=== PATIENT | male | born 1950 | race Caucasian/White ===

== ENCOUNTER → 2016-12-01 | Outpatient (CLI) | payer BC, OTHER ==
[~2016-12-01] VITALS: Ht 30.5 cm; Wt 0.5 kg
[~2016-12-01] MED LIST: APIX5TAB OR; ATOR1TAB PO; CYANOCOBALAMIN (B-12) 1000 MCG/1 ML VIAL IM ONE; CYANOCOBALAMIN (B-12) 1000 MCG/1 ML VIAL ONE; DIGO0.2570 PO; DOCU100T15 PO; FAMO40TA49 PO; FURO40TA PO; LEVO25TA6 PO; LISI-646 PO; METO-159 PO; OMEP20CA5 PO; POTA10TA51 PO; SPIR25TA89 PO; TEMA30CA PO; VENL37.56 PO
[2016-12-01 12:25] VITALS: BP 129/82
[2016-12-01 16:55] LABS: Potassium 4.1 mmol/L (3.5-5.1)
[2016-12-01 16:58] LABS: BUN/Creatinine Ratio 12.7; Basophils # (auto) 0 uL; Basophils % (auto) 0.4 % (0.0-2.0); Calcium 8.9 mg/dL (8.5-10.1); Eosinophils # (auto) 0.1 uL; Eosinophils % (auto) 0.9 % (0.0-7.0); Hemoglobin 15.5 g/dL (13.5-17.5); Lymphocytes # (auto) 1.5 uL; Lymphocytes % (auto) 22.5 % (10.0-50.0); Magnesium 2.2 mg/dL (1.6-2.6); Mean Corpuscular Hemoglobin 30.6 pg (28.0-32.0); Mean Corpuscular Hgb Conc. 32.3 g/dL (32.0-36.0); Mean Platelet Volume 10.6 fL (7.4-10.4); Monocytes # (auto) 0.4 uL; Monocytes % (auto) 5.6 % (0.0-12.0); Neutrophils # (auto) 4.8 uL; Neutrophils % (auto) 70.6 % (37.0-80.0); Platelet Count (auto) 193 10^3/uL (140-450); Red Cell Distribution Width 13.3 % (11.6-16.0); White Blood Cell 6.7 10^3/uL (4.4-10.8)
== END | disposition home or self-care (01) ==
LOC: CHF HDHVI 11:18
PROVIDERS: ATTEND Internal Medicine Cardiovascular Disease
DX: I10 Essential (primary) hypertension (principal); T46.0X6D Underdosing of cardiac-stimulant glycosides and drugs of similar action, subsequent encounter; E03.9 Hypothyroidism, unspecified; D64.9 Anemia, unspecified; E83.40 Disorders of magnesium metabolism, unspecified
CPT/HCPCS: 36415; 80048; 80162; 83735; 84443; 85025; 85049; 93701; G0463

== ENCOUNTER → 2016-12-11 | Outpatient (CLI) | payer OTHER ==
[~2016-12-11] MED LIST changes: -CYANOCOBALAMIN (B-12) 1000 MCG/1 ML VIAL IM ONE; -CYANOCOBALAMIN (B-12) 1000 MCG/1 ML VIAL ONE
[2016-12-11 11:16] LABS: Urine RBC None Seen /hpf (0 - 3)
[2016-12-11 11:41] LABS: Urine Bilirubin Negative (Negative); Urine Blood Negative /uL (Negative); Urine Color Yellow (Yellow); Urine Glucose Normal (Normal); Urine Hyaline Cast FEW /lpf (0 - 2); Urine Ketone Negative (Negative); Urine Nitrite Negative (Negative); Urine Urobilinogen Normal (Negative)
[2016-12-11 11:56] LABS: Albumin 3.8 g/dL (3.4-5.0); BUN/Creatinine Ratio 15.8; Bilirubin, Total 1.2 mg/dL (0.2-1.0); Calcium 9.1 mg/dL (8.5-10.1); Potassium 4.6 mmol/L (3.5-5.1); Total Protein 7.5 g/dL (6.4-8.2)
== END | disposition home or self-care (01) ==
LOC: LAB 10:34
PROVIDERS: ATTEND Internal Medicine
DX: Z00.00 Encounter for general adult medical examination without abnormal findings (principal)
CPT/HCPCS: 36415; 80053; 80061; 80162; 81001; 83036; 84443

== ENCOUNTER → 2017-03-12 | Outpatient (CLI) | payer OTHER | END | disposition home or self-care (01) | LOC: Rad HDHVI 10:17 | PROVIDERS: ATTEND Internal Medicine Cardiovascular Disease | DX: T46.0X6D Underdosing of cardiac-stimulant glycosides and drugs of similar action, subsequent encounter (principal) | CPT/HCPCS: 36415; 70220; 80162 ==

== ENCOUNTER 2017-04-15 10:41 | Emergency (ER) | payer BC, OTHER, MEDICAID ==
[~2017-04-15] VITALS: Ht 177.8 cm; Wt 86.2 kg
[~2017-04-15 10:41] MED LIST changes: -OMEP20CA5 PO; +OMEP20CA74 PO
[2017-04-15 12:32] LABS: Basophils # (auto) 0 uL; Basophils % (auto) 0.2 % (0.0-2.0); Eosinophils # (auto) 0.1 uL; Eosinophils % (auto) 1.2 % (0.0-7.0); Hematocrit 44.7 % (41.0-53.0); Hemoglobin 15.1 g/dL (13.5-17.5); Lymphocytes # (auto) 1.9 uL; Lymphocytes % (auto) 32.5 % (10.0-50.0); Mean Corpuscular Hemoglobin 31.7 pg (28.0-32.0); Mean Corpuscular Hgb Conc. 33.8 g/dL (32.0-36.0); Mean Corpuscular Volume 93.9 fL (80.0-100.0); Mean Platelet Volume 9.6 fL (7.4-10.4); Monocytes # (auto) 0.5 uL; Monocytes % (auto) 8.4 % (0.0-12.0); Neutrophils # (auto) 3.4 uL; Neutrophils % (auto) 57.7 % (37.0-80.0); Platelet Count (auto) 210 10^3/uL (140-450); White Blood Cell 5.8 10^3/uL (4.4-10.8)
[2017-04-15 12:53] LABS: Magnesium 2.1 mg/dL (1.6-2.6)
[2017-04-15 12:59] LABS: Albumin 3.4 g/dL (3.4-5.0); Alkaline Phosphatase 71 U/L (45-117); Anion Gap 6 (5-15); Aspartate Aminotransferase 22 U/L (15-37); BUN/Creatinine Ratio 15.3; Bilirubin, Total 0.9 mg/dL (0.2-1.0); Blood Urea Nitrogen 18 mg/dL (7-18); Calcium 8.7 mg/dL (8.5-10.1); Carbon Dioxide 29 mmol/L (21-32); Chloride 106 mmol/L (98-107); GFR African American 80 mL/min; GFR Non-African American 66 mL/min; Glucose 109 mg/dL (74-106); Potassium 4.6 mmol/L (3.5-5.1); Sodium 141 mmol/L (136-145)
[2017-04-15 17:58] LABS: Urine Bilirubin Negative (Negative); Urine Blood Negative /uL (Negative); Urine Color Yellow (Yellow); Urine Glucose Normal (Normal); Urine Ketone TRACE (Negative); Urine Nitrite Negative (Negative); Urine RBC <1 /hpf (0 - 3); Urine Squamous Epithelial Cell FEW /hpf (<5); Urine pH 6.5 (5.0-8.0)
[2017-04-15 21:08] VITALS: BP 140/81
== END 2017-04-15 21:08 | disposition home or self-care (01) ==
LOC: ER 10:41
DX: F29 Unspecified psychosis not due to a substance or known physiological condition (principal); I11.0 Hypertensive heart disease with heart failure; I50.9 Heart failure, unspecified; E78.5 Hyperlipidemia, unspecified; K21.9 Gastro-esophageal reflux disease without esophagitis; E07.89 Other specified disorders of thyroid; G51.0 Bell's palsy; Z79.899 Other long term (current) drug therapy
CPT/HCPCS: 36415; 70450; 71020; 80053; 80162; 80307; 80320; 81001; 83735; 84484; 85025; 93005

== ENCOUNTER → 2017-04-20 | Outpatient (CLI) | payer BC, OTHER, MEDICAID | END | disposition home or self-care (01) | LOC: CHF HDHVI 11:57 | PROVIDERS: ATTEND Internal Medicine Cardiovascular Disease | DX: I50.9 Heart failure, unspecified (principal); F32.9 Major depressive disorder, single episode, unspecified; E07.9 Disorder of thyroid, unspecified | CPT/HCPCS: G0463 ==

== ENCOUNTER → 2017-06-04 | Outpatient (CLI) | payer OTHER, MEDICAID ==
[~2017-06-04] MED LIST changes: +CYANOCOBALAMIN (B-12) 1000 MCG/1 ML VIAL IM ONE; +CYANOCOBALAMIN (B-12) 1000 MCG/1 ML VIAL ONE; +TESTOSTERONE CYPIONATE 200 MG/ML 1ML VIAL IM ONE
[2017-06-04 12:05] VITALS: BP 103/64
[2017-06-04 13:45] VITALS: BP 93/57
[2017-06-04 16:30] LABS: B-Type Natriuretic Peptide 154.2 pg/mL (0-100)
[2017-06-04 16:32] LABS: Temperature: 22.9 C (20.0-25.0)
== END | disposition home or self-care (01) ==
LOC: CHF HDHVI 12:10
PROVIDERS: ATTEND Internal Medicine Cardiovascular Disease
DX: I50.9 Heart failure, unspecified (principal); D51.9 Vitamin B12 deficiency anemia, unspecified; E55.9 Vitamin D deficiency, unspecified; R53.81 Other malaise
CPT/HCPCS: 36415; 82306; 82607; 83880; 84403; 94620; G0463; J1071; J3420

== ENCOUNTER → 2017-06-10 | Outpatient (CLI) | payer OTHER, MEDICAID ==
[~2017-06-10] MED LIST changes: -CYANOCOBALAMIN (B-12) 1000 MCG/1 ML VIAL IM ONE; -CYANOCOBALAMIN (B-12) 1000 MCG/1 ML VIAL ONE; -TESTOSTERONE CYPIONATE 200 MG/ML 1ML VIAL IM ONE
[2017-06-10 14:15] VITALS: BP 92/58
[2017-06-10 16:07] VITALS: BP 92/58
[2017-06-10 16:30] VITALS: BP 110/75
== END | disposition home or self-care (01) ==
LOC: CHF HDHVI 14:48
PROVIDERS: ATTEND Internal Medicine Cardiovascular Disease
DX: I10 Essential (primary) hypertension (principal); E87.70 Fluid overload, unspecified; R45.1 Restlessness and agitation
CPT/HCPCS: G0463

== ENCOUNTER → 2017-06-15 | Outpatient (CLI) | payer OTHER, MEDICAID ==
[2017-06-15 15:50] VITALS: BP 109/71
[2017-06-15 17:23] LABS: Cholesterol 95 mg/dL (< 200); HDL Cholesterol 26 mg/dL (40-59); LDL Cholesterol 53 mg/dL (< 100); Triglycerides 168 mg/dL (< 150)
== END | disposition home or self-care (01) ==
LOC: CHF HDHVI 15:18
PROVIDERS: ATTEND Internal Medicine Cardiovascular Disease
DX: E78.00 Pure hypercholesterolemia, unspecified (principal)
CPT/HCPCS: 36415; 80061; G0463

== ENCOUNTER → 2017-07-02 | Outpatient (CLI) | payer OTHER, MEDICAID ==
[~2017-07-02] MED LIST changes: +CYANOCOBALAMIN (B-12) 1000 MCG/1 ML VIAL IM ONE; +CYANOCOBALAMIN (B-12) 1000 MCG/1 ML VIAL ONE; +TESTOSTERONE CYPIONATE 200 MG/ML 1ML VIAL IM ONE
[2017-07-02 13:45] VITALS: BP 99/59
[2017-07-02 16:29] LABS: Basophils # (auto) 0 uL; Basophils % (auto) 0.6 % (0.0-2.0); CONDITION Y; Eosinophils # (auto) 0.1 uL; Hematocrit 44.3 % (41.0-53.0); Hemoglobin 14.9 g/dL (13.5-17.5); Lymphocytes # (auto) 1.6 uL; Lymphocytes % (auto) 29.8 % (10.0-50.0); Mean Corpuscular Hemoglobin 31.7 pg (28.0-32.0); Mean Corpuscular Hgb Conc. 33.6 g/dL (32.0-36.0); Mean Corpuscular Volume 94.4 fL (80.0-100.0); Monocytes # (auto) 0.5 uL; Monocytes % (auto) 9.9 % (0.0-12.0); Neutrophils # (auto) 3.1 uL; Neutrophils % (auto) 58.7 % (37.0-80.0); Platelet Count (auto) 221 10^3/uL (140-450); Red Cell Distribution Width 14.2 % (11.6-16.0); White Blood Cell 5.2 10^3/uL (4.4-10.8)
[2017-07-02 16:43] LABS: BUN/Creatinine Ratio 18.2; Calcium 8.8 mg/dL (8.5-10.1); Magnesium 2.6 mg/dL (1.6-2.6); Potassium 4.3 mmol/L (3.5-5.1)
== END | disposition home or self-care (01) ==
LOC: CHF HDHVI 12:25
PROVIDERS: ATTEND Internal Medicine Cardiovascular Disease
DX: I11.0 Hypertensive heart disease with heart failure (principal); I50.9 Heart failure, unspecified; E83.42 Hypomagnesemia; E78.5 Hyperlipidemia, unspecified; D64.9 Anemia, unspecified; F41.9 Anxiety disorder, unspecified
CPT/HCPCS: 36415; 80048; 83735; 85025; 93701; 96372; G0463; J1071; J3420

== ENCOUNTER → 2017-08-09 | Outpatient (CLI) | payer OTHER, MEDICAID ==
[2017-08-09 14:00] VITALS: BP 113/73
[2017-08-09 14:08] VITALS: BP 114/82
== END | disposition home or self-care (01) ==
LOC: CHF HDHVI 13:32
PROVIDERS: ATTEND Internal Medicine Cardiovascular Disease
DX: I50.9 Heart failure, unspecified (principal); I48.91 Unspecified atrial fibrillation
CPT/HCPCS: 96372; G0463; J1071; J3420

== ENCOUNTER → 2017-09-02 | Outpatient (CLI) | payer OTHER, MEDICAID ==
[~2017-09-02] VITALS: Ht 30.5 cm; Wt 93.0 kg
[~2017-09-02] MED LIST changes: -CYANOCOBALAMIN (B-12) 1000 MCG/1 ML VIAL IM ONE; +CYANOCOBALAMIN (B-12) 1000 MCG/1 ML VIAL SUBCUT ONE
[2017-09-02 16:15] VITALS: BP 107/67
[2017-09-02 16:16] LABS: Potassium 4.3 mmol/L (3.5-5.1)
== END | disposition home or self-care (01) ==
LOC: CHF HDHVI 14:20
PROVIDERS: ATTEND Internal Medicine Cardiovascular Disease
DX: I11.0 Hypertensive heart disease with heart failure (principal); I50.9 Heart failure, unspecified; I25.10 Atherosclerotic heart disease of native coronary artery without angina pectoris; E11.9 Type 2 diabetes mellitus without complications; R53.83 Other fatigue; E29.1 Testicular hypofunction; F32.9 Major depressive disorder, single episode, unspecified; R39.15 Urgency of urination; R94.4 Abnormal results of kidney function studies
CPT/HCPCS: 36415; 82565; 83036; 84132; 84520; 93701; 96372; G0463; J1071; J3420

== ENCOUNTER → 2017-09-30 | Outpatient (CLI) | payer OTHER, MEDICAID ==
[~2017-09-30] MED LIST changes: -CYANOCOBALAMIN (B-12) 1000 MCG/1 ML VIAL SUBCUT ONE
== END | disposition home or self-care (01) ==
LOC: LAB 10:26
PROVIDERS: ATTEND Urology
DX: N52.9 Male erectile dysfunction, unspecified (principal); I11.0 Hypertensive heart disease with heart failure; I50.9 Heart failure, unspecified
CPT/HCPCS: 84153

== ENCOUNTER → 2017-10-01 | Outpatient (CLI) | payer OTHER, MEDICAID ==
[~2017-10-01] MED LIST changes: +CYANOCOBALAMIN (B-12) 1000 MCG/1 ML VIAL IM ONE
[2017-10-01 12:35] VITALS: BP 102/56
[2017-10-01 13:00] VITALS: BP 91/53
== END | disposition home or self-care (01) ==
LOC: CHF HDHVI 12:39
PROVIDERS: ATTEND Internal Medicine Cardiovascular Disease
DX: I11.0 Hypertensive heart disease with heart failure (principal); I50.9 Heart failure, unspecified; D64.9 Anemia, unspecified; E29.1 Testicular hypofunction
CPT/HCPCS: 96372; G0463; J1071; J3420

== ENCOUNTER → 2017-12-07 | Outpatient (CLI) | payer OTHER, MEDICAID ==
[~2017-12-07] MED LIST changes: -CYANOCOBALAMIN (B-12) 1000 MCG/1 ML VIAL IM ONE; -CYANOCOBALAMIN (B-12) 1000 MCG/1 ML VIAL ONE; -TESTOSTERONE CYPIONATE 200 MG/ML 1ML VIAL IM ONE
[2017-12-07 12:33] LABS: Basophils # (auto) 0 uL; Basophils % (auto) 0.5 % (0.0-2.0); Eosinophils # (auto) 0 uL; Eosinophils % (auto) 0.9 % (0.0-7.0); Hematocrit 51.8 % (41.0-53.0); Hemoglobin 17.3 g/dL (13.5-17.5); Lymphocytes # (auto) 1.3 uL; Lymphocytes % (auto) 23.9 % (10.0-50.0); Mean Corpuscular Hemoglobin 32.1 pg (28.0-32.0); Mean Corpuscular Hgb Conc. 33.4 g/dL (32.0-36.0); Monocytes # (auto) 0.6 uL; Monocytes % (auto) 11.4 % (0.0-12.0); Neutrophils # (auto) 3.4 uL; Neutrophils % (auto) 63.3 % (37.0-80.0); Nucleated Red Blood Cells % 0.1 %; Platelet Count (auto) 193 10^3/uL (140-450); Red Blood Cells 5.39 10^6/uL (4.5-5.90); Red Cell Distribution Width 14.9 % (11.8-14.3); White Blood Cell 5.3 10^3/uL (4.4-10.8)
[2017-12-07 14:09] LABS: Albumin 3.7 g/dL (3.4-5.0); BUN/Creatinine Ratio 16.8; Bilirubin, Total 1.2 mg/dL (0.2-1.0); Potassium 5.3 mmol/L (3.5-5.1); Total Protein 7.7 g/dL (6.4-8.2)
== END | disposition home or self-care (01) ==
LOC: LAB 11:52
PROVIDERS: ATTEND Physician Assistant
DX: I10 Essential (primary) hypertension (principal); E03.9 Hypothyroidism, unspecified; I42.0 Dilated cardiomyopathy; N52.9 Male erectile dysfunction, unspecified; E29.1 Testicular hypofunction
CPT/HCPCS: 36415; 80053; 80061; 84153; 84403; 84443; 85025

== ENCOUNTER → 2017-12-27 | Outpatient (CLI) | payer OTHER, MEDICAID | END | disposition home or self-care (01) | LOC: LAB 08:07 | PROVIDERS: ATTEND Internal Medicine Cardiovascular Disease | DX: I37.1 Nonrheumatic pulmonary valve insufficiency (principal); I10 Essential (primary) hypertension | CPT/HCPCS: 93306 ==

== ENCOUNTER → 2018-01-05 | Outpatient (CLI) | payer OTHER, MEDICAID ==
[~2018-01-05] VITALS: Ht 177.8 cm; Wt 97.5 kg
== END | disposition home or self-care (01) ==
LOC: Rad HDHVI 13:45
PROVIDERS: ATTEND Internal Medicine Cardiovascular Disease
DX: I10 Essential (primary) hypertension (principal); I21.9 Acute myocardial infarction, unspecified; E78.00 Pure hypercholesterolemia, unspecified; Z95.0 Presence of cardiac pacemaker; Z82.49 Family history of ischemic heart disease and other diseases of the circulatory system
CPT/HCPCS: 78452; 93017; 96374; A9500

== ENCOUNTER → 2018-06-15 | Outpatient (CLI) | payer OTHER, MEDICAID ==
[~2018-06-15] VITALS: Ht 177.8 cm; Wt 90.7 kg
== END | disposition home or self-care (01) ==
LOC: Rad HDHVI 09:40
PROVIDERS: ATTEND Internal Medicine Cardiovascular Disease
DX: Z01.818 Encounter for other preprocedural examination (principal); I42.0 Dilated cardiomyopathy; I11.0 Hypertensive heart disease with heart failure; I50.23 Acute on chronic systolic (congestive) heart failure; K21.9 Gastro-esophageal reflux disease without esophagitis; Z79.899 Other long term (current) drug therapy
CPT/HCPCS: 78472; 96374; 96375; A9505

== ENCOUNTER → 2018-10-10 | Outpatient (CLI) | payer OTHER, MEDICAID ==
[~2018-10-10] MED LIST changes: +SPIR25TA8 PO; -SPIR25TA89 PO
[2018-10-10 15:26] LABS: Albumin 3.2 g/dL (3.4-5.0)
[2018-10-10 15:30] LABS: Bilirubin, Direct 0.4 mg/dL (0-0.2); Bilirubin, Total 1.1 mg/dL (0.2-1.0)
== END | disposition home or self-care (01) ==
LOC: LAB 13:57
PROVIDERS: ATTEND Urology
DX: E29.1 Testicular hypofunction (principal)
CPT/HCPCS: 36415; 80076; 84403

== ENCOUNTER → 2018-10-14 | Outpatient (CLI) | payer OTHER, MEDICAID | END | disposition home or self-care (01) | LOC: LAB 13:21 | PROVIDERS: ATTEND Physician Assistant | DX: Z12.11 Encounter for screening for malignant neoplasm of colon (principal) | CPT/HCPCS: 82270 ==

== ENCOUNTER 2019-03-23 00:07 | Inpatient (IN) | payer OTHER, MEDICAID | END 2019-03-24 19:01 | disposition home or self-care (01) | LOC: ER 00:07 → OVERFLOW 09:32 → EAST 10:56 | DX: K57.92 Diverticulitis of intestine, part unspecified, without perforation or abscess without bleeding (principal); I50.23 Acute on chronic systolic (congestive) heart failure ==

== ENCOUNTER → 2019-10-27 | Outpatient (CLI) | payer OTHER, MEDICAID ==
[~2019-10-27] MED LIST changes: +ALPR0.5T7 PO; -APIX5TAB OR; +ASCO500C49 PO; +CHOL1TAB28 PO; +COEN300C PO; +CYAN1TAB14 PO; -DOCU100T15 PO; -FAMO40TA49 PO; +FLUO60TA PO; +FURO1TAB31 PO; -FURO40TA PO; +KRIL1CAP11 PO; -LISI-646 PO; +MAGN400T40 PO; +MELA5TAB8 PO; -METO-159 PO; +METO-169 PO; +MULT-223 PO; +SILD100T57 PO; -TEMA30CA PO; +TEST1INJ9 IM; -VENL37.56 PO; +VITA400C7 PO
[2019-10-27 14:39] LABS: Basophils # (auto) 0 uL; Basophils % (auto) 0.4 % (0.0-2.0); Eosinophils # (auto) 0 uL; Eosinophils % (auto) 0.8 % (0.0-7.0); Hematocrit 41.7 % (41.0-53.0); Hemoglobin 13.9 g/dL (13.5-17.5); Lymphocytes # (auto) 1.2 uL; Mean Corpuscular Hemoglobin 31.6 pg (28.0-32.0); Mean Corpuscular Hgb Conc. 33.4 g/dL (32.0-36.0); Mean Corpuscular Volume 94.7 fL (80.0-100.0); Monocytes # (auto) 0.5 uL; Monocytes % (auto) 9.4 % (0.0-12.0); Neutrophils # (auto) 3.3 uL; Neutrophils % (auto) 65.4 % (37.0-80.0); Nucleated Red Blood Cells % 0.1 %; Platelet Count (auto) 181 10^3/uL (140-450); Red Blood Cells 4.41 10^6/uL (4.5-5.90); Red Cell Distribution Width 13.7 % (11.8-14.3); White Blood Cell 5.1 10^3/uL (4.4-10.8)
[2019-10-27 14:54] LABS: Albumin 3.4 g/dL (3.4-5.0); Calcium 9.2 mg/dL (8.5-10.1); Potassium 5.3 mmol/L (3.5-5.1)
[2019-10-27 15:01] LABS: BUN/Creatinine Ratio 16.3; Total Protein 7.2 g/dL (6.4-8.2)
== END | disposition home or self-care (01) ==
LOC: LAB 14:17
PROVIDERS: ATTEND Physician Assistant
DX: Z12.5 Encounter for screening for malignant neoplasm of prostate (principal); E03.9 Hypothyroidism, unspecified; I95.9 Hypotension, unspecified; E34.9 Endocrine disorder, unspecified; I73.9 Peripheral vascular disease, unspecified; I10 Essential (primary) hypertension
CPT/HCPCS: 36415; 80053; 80061; 84153; 84403; 84443; 85025

== ENCOUNTER → 2020-05-30 | Outpatient (CLI) | payer OTHER, MEDICAID ==
[~2020-05-30] MED LIST changes: +VITA-93 PO; -VITA400C7 PO
[2020-05-30 13:03] LABS: Albumin 3.6 g/dL (3.4-5.0); Bilirubin, Direct 0.4 mg/dL (0-0.2); Bilirubin, Total 1.3 mg/dL (0.2-1.0); Total Protein 7.7 g/dL (6.4-8.2)
== END | disposition home or self-care (01) ==
LOC: LAB 11:01
PROVIDERS: ATTEND Urology
DX: N40.0 Benign prostatic hyperplasia without lower urinary tract symptoms (principal); E29.1 Testicular hypofunction
CPT/HCPCS: 36415; 80076; 84153; 84403

== ENCOUNTER → 2020-07-04 | Outpatient (CLI) | payer OTHER, MEDICAID ==
[~2020-07-04] VITALS: Ht 177.8 cm; Wt 76.2 kg
[~2020-07-04] MED LIST changes: +ADENOSINE 64 MG in GIVE UN-DILUTED 0 ML IV ONE; +ADENOSINE 90 MG/30 ML INJ IV ONE
== END | disposition home or self-care (01) ==
LOC: Rad HDHVI 09:26
PROVIDERS: ATTEND Internal Medicine Cardiovascular Disease
DX: Z01.810 Encounter for preprocedural cardiovascular examination (principal); I11.0 Hypertensive heart disease with heart failure; I50.43 Acute on chronic combined systolic (congestive) and diastolic (congestive) heart failure; I42.0 Dilated cardiomyopathy; I25.2 Old myocardial infarction; E78.00 Pure hypercholesterolemia, unspecified; Z95.0 Presence of cardiac pacemaker; Z82.49 Family history of ischemic heart disease and other diseases of the circulatory system
CPT/HCPCS: 78452; 93005; 93306; 96374; 96375; A9500; J0153

== ENCOUNTER → 2021-03-10 | Outpatient (CLI) | payer OTHER, MEDICAID ==
[~2021-03-10] MED LIST changes: -ADENOSINE 64 MG in GIVE UN-DILUTED 0 ML IV ONE; -ADENOSINE 90 MG/30 ML INJ IV ONE; +APIX5TAB PO; +ATOR-47 PO; -ATOR1TAB PO; -METO-169 PO; +METO-289 PO; +SACU1TAB PO; +SACU1TAB7 PO; -VITA-93 PO; +VITACAP28 PO
[2021-03-10 09:18] VITALS: BP 100/71
[2021-03-10 09:41] VITALS: BP 101/74
[2021-03-10 12:03] LABS: Basophils # (auto) 0 10 ^3/uL (0-0.2); Basophils % (auto) 0.4 % (0.0-2.0); Eosinophils # (auto) 0.1 10 ^3/uL (0-0.8); Eosinophils % (auto) 1.2 % (0.0-7.0); Hematocrit 48.8 % (41.0-53.0); Hemoglobin 16.8 g/dL (13.5-17.5); Lymphocytes # (auto) 1.2 10 ^3/uL (0.4-5.4); Mean Corpuscular Hemoglobin 33.1 pg (28.0-32.0); Mean Corpuscular Hgb Conc. 34.4 g/dL (32.0-36.0); Monocytes # (auto) 0.6 10 ^3/uL (0-1.3); Monocytes % (auto) 10.2 % (0.0-12.0); Neutrophils # (auto) 4.4 10 ^3/uL (1.6-8.6); Neutrophils % (auto) 69.2 % (37.0-80.0); Platelet Count (auto) 164 10^3/uL (140-450); Red Blood Cells 5.09 10^6/uL (4.5-5.90); Red Cell Distribution Width 15.2 % (11.8-14.3); White Blood Cell 6.4 10^3/uL (4.4-10.8)
[2021-03-10 12:09] LABS: Potassium 4.7 mmol/L (3.5-5.1)
[2021-03-10 12:15] LABS: BUN/Creatinine Ratio 16.8; Calcium 9.2 mg/dL (8.5-10.1)
[2021-03-10 12:34] LABS: INR 1.1 (0.9-1.15); Partial Thromboplastin Time 28.1 sec (23.0-31.2)
== END | disposition home or self-care (01) ==
LOC: Rad HDHVI 09:01
PROVIDERS: ATTEND Internal Medicine Cardiovascular Disease
DX: Z01.812 Encounter for preprocedural laboratory examination (principal); Z45.02 Encounter for adjustment and management of automatic implantable cardiac defibrillator; I70.0 Atherosclerosis of aorta; M47.814 Spondylosis without myelopathy or radiculopathy, thoracic region; I42.9 Cardiomyopathy, unspecified; R94.31 Abnormal electrocardiogram [ECG] [EKG]
CPT/HCPCS: 36415; 71046; 80048; 85025; 85610; 85730; 93005; G0463

== ENCOUNTER 2021-03-13 06:38 | Day surgery (SDC) | payer OTHER, MEDICAID ==
[~2021-03-13] VITALS: Ht 177.8 cm; Wt 76.2 kg
[~2021-03-13 06:38] MED LIST changes: -ASCO500C49 PO; -CHOL1TAB28 PO; -COEN300C PO; -CYAN1TAB14 PO; -KRIL1CAP11 PO; -MAGN400T40 PO; -MULT-223 PO; -SACU1TAB7 PO; -VITACAP28 PO
[2021-03-13] MEDS ORDERED: VANCOMYCIN HCL 1000 MG VL ONE (09:10)
[2021-03-13] MEDS ORDERED: LIDOCAINE 2%HCL (LOCAL ANESTH.) INJ 20ML MDV ONE (09:11)
[2021-03-13] MEDS ORDERED: MIDAZOLAM HCL 1MG/1ML-2 ML VIAL ONE (09:11)
[2021-03-13] MEDS ORDERED: VANCOMYCIN 1GM/250ML 250 ML IV ONE (09:11)
[2021-03-13] MEDS ORDERED: fentaNYL CITRATE 100 MCG/2 ML VL ONE (09:11)
[2021-03-13] MEDS ORDERED: ONDANSETRON HCL 4 MG/2 ML VIAL ONE (10:53)
[2021-03-13] MEDS ORDERED: ACETAMINOPHEN 325 MG TAB PO PRN (11:45)
[2021-03-13] MEDS ORDERED: ONDANSETRON HCL 4 MG/2 ML VIAL IV ONE (11:45)
[2021-03-13] MEDS ORDERED: HYDROcodone-ACET 5/325MG TAB PO PRN (11:45)
== END 2021-03-13 12:49 | disposition home or self-care (01) ==
LOC: CATH 06:38
PROVIDERS: ATTEND Internal Medicine Cardiovascular Disease
DX: Z45.02 Encounter for adjustment and management of automatic implantable cardiac defibrillator (principal); I42.0 Dilated cardiomyopathy; I25.2 Old myocardial infarction; I10 Essential (primary) hypertension; I50.9 Heart failure, unspecified; I25.118 Atherosclerotic heart disease of native coronary artery with other forms of angina pectoris; F32.9 Major depressive disorder, single episode, unspecified; F41.9 Anxiety disorder, unspecified; F99 Mental disorder, not otherwise specified; Z87.891 Personal history of nicotine dependence; Z20.822 Contact with and (suspected) exposure to COVID-19
CPT/HCPCS: 33264; C1882; J2250; J2405; J3010; J3370; U0003; 99152; 99153

== ENCOUNTER 2021-05-08 15:06 | Emergency (ER) | payer OTHER, MEDICAID ==
[~2021-05-08] VITALS: Ht 177.8 cm; Wt 77.1 kg
[2021-05-08 15:42] LABS: Basophils # (auto) 0 10 ^3/uL (0-0.2); Basophils % (auto) 0.6 % (0.0-2.0); Eosinophils # (auto) 0.1 10 ^3/uL (0-0.8); Eosinophils % (auto) 0.9 % (0.0-7.0); Hematocrit 44.1 % (41.0-53.0); Hemoglobin 15.4 g/dL (13.5-17.5); Lymphocytes # (auto) 1.4 10 ^3/uL (0.4-5.4); Lymphocytes % (auto) 21.1 % (10.0-50.0); Mean Corpuscular Hemoglobin 33.3 pg (28.0-32.0); Mean Corpuscular Hgb Conc. 34.8 g/dL (32.0-36.0); Mean Corpuscular Volume 95.7 fL (80.0-100.0); Monocytes # (auto) 0.6 10 ^3/uL (0-1.3); Monocytes % (auto) 9.8 % (0.0-12.0); Neutrophils # (auto) 4.4 10 ^3/uL (1.6-8.6); Neutrophils % (auto) 67.6 % (37.0-80.0); Platelet Count (auto) 155 10^3/uL (140-450); Red Blood Cells 4.61 10^6/uL (4.5-5.90); Red Cell Distribution Width 14.2 % (11.8-14.3); White Blood Cell 6.5 10^3/uL (4.4-10.8)
[2021-05-08 15:58] LABS: Albumin 3.5 g/dL (3.4-5.0); Calcium 8.6 mg/dL (8.5-10.1); Magnesium 2.1 mg/dL (1.6-2.6); Potassium 4.8 mmol/L (3.5-5.1)
[2021-05-08] MEDS ORDERED: SODIUM CHLORIDE 0.9% 500 ML IV ONE (16:00)
[2021-05-08 16:01] LABS: BUN/Creatinine Ratio 12.1; Bilirubin, Total 0.7 mg/dL (0.2-1.0); Total Protein 7.1 g/dL (6.4-8.2)
[2021-05-08 17:09] VITALS: BP 87/57
== END 2021-05-08 17:19 | disposition home or self-care (01) ==
LOC: ER 15:06
DX: E87.8 Other disorders of electrolyte and fluid balance, not elsewhere classified (principal); F12.10 Cannabis abuse, uncomplicated; I11.0 Hypertensive heart disease with heart failure; I50.9 Heart failure, unspecified; E78.00 Pure hypercholesterolemia, unspecified; Z95.0 Presence of cardiac pacemaker; Z79.899 Other long term (current) drug therapy
CPT/HCPCS: 36415; 80053; 83735; 84484; 85025; 85049; 93005; 96360; 99284; J7040

== ENCOUNTER → 2021-05-08 | Outpatient (CLI) | payer OTHER, MEDICAID ==
[2021-05-08 11:17] LABS: Basophils # (auto) 0 10 ^3/uL (0-0.2); Basophils % (auto) 0.3 % (0.0-2.0); Eosinophils # (auto) 0.1 10 ^3/uL (0-0.8); Eosinophils % (auto) 0.9 % (0.0-7.0); Hematocrit 46.2 % (41.0-53.0); Hemoglobin 15.5 g/dL (13.5-17.5); Lymphocytes # (auto) 1.1 10 ^3/uL (0.4-5.4); Lymphocytes % (auto) 15.5 % (10.0-50.0); Mean Corpuscular Hemoglobin 32.2 pg (28.0-32.0); Mean Corpuscular Hgb Conc. 33.6 g/dL (32.0-36.0); Mean Corpuscular Volume 95.8 fL (80.0-100.0); Monocytes # (auto) 0.7 10 ^3/uL (0-1.3); Monocytes % (auto) 10.1 % (0.0-12.0); Neutrophils % (auto) 73.2 % (37.0-80.0); Nucleated Red Blood Cells % 0.1 %; Platelet Count (auto) 150 10^3/uL (140-450); Red Blood Cells 4.82 10^6/uL (4.5-5.90); Red Cell Distribution Width 14.3 % (11.8-14.3); White Blood Cell 6.8 10^3/uL (4.4-10.8)
[2021-05-08 11:51] LABS: Albumin 3.5 g/dL (3.4-5.0); BUN/Creatinine Ratio 14.2; Calcium 8.7 mg/dL (8.5-10.1)
[2021-05-08 11:56] LABS: Bilirubin, Total 0.8 mg/dL (0.2-1.0)
[2021-05-08 13:20] LABS: Potassium 5.7 mmol/L (3.5-5.1)
== END | disposition home or self-care (01) ==
LOC: LAB 10:34
PROVIDERS: ATTEND Nurse Practitioner Family
DX: Z12.11 Encounter for screening for malignant neoplasm of colon (principal); E34.9 Endocrine disorder, unspecified; E03.9 Hypothyroidism, unspecified
CPT/HCPCS: 36415; 80053; 80061; 82274; 84153; 84403; 85025; 85049

== ENCOUNTER → 2021-12-09 | Outpatient (CLI) | payer OTHER, MEDICAID | END | disposition home or self-care (01) | LOC: Rad HDHVI 14:55 | PROVIDERS: ATTEND Internal Medicine Cardiovascular Disease | DX: I25.118 Atherosclerotic heart disease of native coronary artery with other forms of angina pectoris (principal); I10 Essential (primary) hypertension | CPT/HCPCS: 93306 ==

== ENCOUNTER → 2021-12-11 | Outpatient (CLI) | payer OTHER, MEDICAID ==
[~2021-12-11] VITALS: Ht 177.8 cm; Wt 77.6 kg
[~2021-12-11] MED LIST changes: +ADENOSINE 65 MG in GIVE UN-DILUTED 0 ML IV ONE; +ADENOSINE 90 MG/30 ML INJ IV ONE
== END | disposition home or self-care (01) ==
LOC: Rad HDHVI 13:20
PROVIDERS: ATTEND Internal Medicine Cardiovascular Disease
DX: I25.10 Atherosclerotic heart disease of native coronary artery without angina pectoris (principal); I10 Essential (primary) hypertension; E78.5 Hyperlipidemia, unspecified; E11.9 Type 2 diabetes mellitus without complications; R42 Dizziness and giddiness; R07.89 Other chest pain; I25.2 Old myocardial infarction; Z95.1 Presence of aortocoronary bypass graft; Z82.49 Family history of ischemic heart disease and other diseases of the circulatory system
CPT/HCPCS: 78452; 93005; 96374; 96375; A9500; J0153

== ENCOUNTER → 2022-03-17 | Outpatient (CLI) | payer OTHER, MEDICAID ==
[~2022-03-17] MED LIST changes: -ADENOSINE 65 MG in GIVE UN-DILUTED 0 ML IV ONE; -ADENOSINE 90 MG/30 ML INJ IV ONE
== END | disposition home or self-care (01) ==
LOC: LAB 12:59
PROVIDERS: ATTEND Nurse Practitioner Family
DX: Z12.11 Encounter for screening for malignant neoplasm of colon (principal)
CPT/HCPCS: 82270

== ENCOUNTER → 2022-03-18 | Outpatient (CLI) | payer OTHER, MEDICAID ==
[2022-03-18 13:22] LABS: Basophils # (auto) 0.1 10 ^3/uL (0-0.2); Basophils % (auto) 2.2 % (0.0-2.0); Eosinophils # (auto) 0.1 10 ^3/uL (0-0.8); Eosinophils % (auto) 2.7 % (0.0-7.0); Hematocrit 48.5 % (41.0-53.0); Hemoglobin 16.4 g/dL (13.5-17.5); Lymphocytes # (auto) 0.8 10 ^3/uL (0.4-5.4); Lymphocytes % (auto) 17.6 % (10.0-50.0); Mean Corpuscular Hgb Conc. 33.8 g/dL (32.0-36.0); Mean Corpuscular Volume 94.9 fL (80.0-100.0); Monocytes # (auto) 0.3 10 ^3/uL (0-1.3); Monocytes % (auto) 5.8 % (0.0-12.0); Neutrophils # (auto) 3.4 10 ^3/uL (1.6-8.6); Neutrophils % (auto) 71.7 % (37.0-80.0); Red Blood Cells 5.12 10^6/uL (4.5-5.90); Red Cell Distribution Width 13.8 % (11.8-14.3); White Blood Cell 4.8 10^3/uL (4.4-10.8)
[2022-03-18 14:22] LABS: Albumin 3.3 g/dL (3.4-5.0); BUN/Creatinine Ratio 18.9; Calcium 9.5 mg/dL (8.5-10.1); Potassium 4.7 mmol/L (3.5-5.1)
[2022-03-18 14:26] LABS: Bilirubin, Total 1.2 mg/dL (0.2-1.0); Total Protein 7.6 g/dL (6.4-8.2)
[2022-03-18 14:32] LABS: Free T4 (Free Thyroxine) 1.29 ng/dL (0.89-1.76)
[2022-03-18 14:33] LABS: Prostate Specific Antigen 0.98 ng/mL (0.0-4.0)
== END | disposition home or self-care (01) ==
LOC: LAB 13:05
PROVIDERS: ATTEND Nurse Practitioner Family
DX: Z00.00 Encounter for general adult medical examination without abnormal findings (principal); I11.0 Hypertensive heart disease with heart failure; I50.9 Heart failure, unspecified; E03.9 Hypothyroidism, unspecified; N40.0 Benign prostatic hyperplasia without lower urinary tract symptoms; R35.1 Nocturia
CPT/HCPCS: 36415; 80053; 80061; 82274; 83036; 84153; 84403; 84439; 84443; 85025

== ENCOUNTER → 2022-04-23 | Outpatient (CLI) | payer OTHER, MEDICAID | END | disposition home or self-care (01) | LOC: LAB 13:36 | PROVIDERS: ATTEND Urology | DX: N40.0 Benign prostatic hyperplasia without lower urinary tract symptoms (principal) | CPT/HCPCS: 84153 ==

== ENCOUNTER → 2022-05-06 | Outpatient (CLI) | payer OTHER | END | disposition home or self-care (01) | LOC: LAB 14:24 | PROVIDERS: ATTEND Internal Medicine | DX: R63.4 Abnormal weight loss (principal) | CPT/HCPCS: 36415; 82565; 84520 ==

== ENCOUNTER → 2022-05-15 | Outpatient (CLI) | payer OTHER | END | disposition home or self-care (01) | LOC: LAB 10:24 | PROVIDERS: ATTEND Nurse Practitioner Family | DX: E27.8 Other specified disorders of adrenal gland (principal) | CPT/HCPCS: 82024; 82088 ==

== ENCOUNTER → 2022-06-30 | Outpatient (CLI) | payer OTHER, MEDICAID ==
[2022-06-30 15:08] LABS: BUN/Creatinine Ratio 13.5; Calcium 8.5 mg/dL (8.5-10.1)
== END | disposition home or self-care (01) ==
LOC: LAB 14:13
PROVIDERS: ATTEND Nurse Practitioner Family
DX: R59.9 Enlarged lymph nodes, unspecified (principal)
CPT/HCPCS: 36415; 80048

== ENCOUNTER 2022-12-23 06:20 | Day surgery (SDC) | payer OTHER ==
[2022-12-22 16:25] LABS: Eosinophils # (auto) 0 10 ^3/uL (0-0.8); Mean Corpuscular Hemoglobin 32.3 pg (28.0-32.0); Mean Corpuscular Hgb Conc. 33.5 g/dL (32.0-36.0); Monocytes # (auto) 0.4 10 ^3/uL (0-1.3); Red Blood Cells 5.04 10^6/uL (4.5-5.90); White Blood Cell 5.9 10^3/uL (4.4-10.8)
[2022-12-22 16:37] LABS: Urine Bacteria NONE SEEN /hpf (None Seen); Urine Blood Negative /uL (Negative); Urine Specific Gravity 1.007 (1.001-1.035); Urine WBC <1 /hpf (0 - 3)
[2022-12-22 16:44] LABS: Basophils # (auto) 0 10 ^3/uL (0-0.2); Basophils % (auto) 0.3 % (0.0-2.0); Eosinophils % (auto) 0.3 % (0.0-7.0); Hematocrit 48.6 % (41.0-53.0); Hemoglobin 16.3 g/dL (13.5-17.5); Lymphocytes % (auto) 16.3 % (10.0-50.0); Mean Corpuscular Volume 96.4 fL (80.0-100.0); Monocytes % (auto) 7.2 % (0.0-12.0); Neutrophils # (auto) 4.5 10 ^3/uL (1.6-8.6); Neutrophils % (auto) 75.9 % (37.0-80.0); Red Cell Distribution Width 14.3 % (11.8-14.3)
[2022-12-22 16:46] LABS: INR 1.17 (0.9-1.15); Partial Thromboplastin Time 28.7 sec (24.6-33.4)
[2022-12-22 17:49] LABS: Potassium 4.7 mmol/L (3.5-5.1)
[2022-12-22 17:59] LABS: Albumin 3.8 g/dL (3.4-5.0); BUN/Creatinine Ratio 13.9; Bilirubin, Total 1.5 mg/dL (0.2-1.0); Calcium 8.9 mg/dL (8.5-10.1); Total Protein 7.2 g/dL (6.4-8.2)
[~2022-12-23] VITALS: Ht 177.8 cm; Wt 72.6 kg
[~2022-12-23 06:20] MED LIST changes: +TAM04C PO
[2022-12-23] MEDS ORDERED: BUPIVACAINE HCL 0.25% P/F 10 ML VIAL ONE (06:45)
[2022-12-23] MEDS ORDERED: LIDOCAINE W/ EPINEPHRINE 1% 20ML VIAL ONE (06:45)
[2022-12-23] MEDS ORDERED: ceFAZolin 1GM/50ML 100 ML IV ONE (07:12)
[2022-12-23] MEDS ORDERED: BUPIVACAINE IMPLANT 3x100mg IL ONE (07:15)
[2022-12-23] MEDS ORDERED: fentaNYL CITRATE 100 MCG/2 ML VL ONE (07:32)
[2022-12-23] MEDS ORDERED: MIDAZOLAM HCL 2MG/2ML 2ml VIAL (1mg/ml) ONE (07:32)
[2022-12-23] MEDS ORDERED: MEPERIDINE HCL (50 MG/ML) 1 ML VIAL ONE (07:33)
[2022-12-23] MEDS ORDERED: LIDOCAINE 2% JELLY 11ml (GLYDO) ONE (07:38)
[2022-12-23] MEDS ORDERED: ceFAZolin 1GM VL ONE (08:12)
[2022-12-23] MEDS ORDERED: ONDANSETRON HCL 4 MG/2 ML VIAL IV PRN (08:15)
[2022-12-23] MEDS ORDERED: LABETALOL HCL 5 MG/ML 4ML SYRINGE IV PRN (08:15)
[2022-12-23] MEDS ORDERED: HYDROmorphone HCL 2 MG/ML VL/or syr IV PRN (08:15)
[2022-12-23] MEDS ORDERED: MIDAZOLAM HCL 2MG/2ML 2ml VIAL (1mg/ml) IV PRN (08:15)
[2022-12-23] MEDS ORDERED: MORPHINE SULFATE 4 MG/ML SYR/VIAL IV PRN (08:15)
[2022-12-23] MEDS ORDERED: ePHEDrine SULFATE 50 MG/ML AMP IV PRN (08:15)
[2022-12-23] MEDS ORDERED: ETOMIDATE (2MG/ML) 20ML VIAL IV ONE (09:11)
[2022-12-23 09:55] VITALS: BP 118/83
== END 2022-12-23 10:10 | disposition home or self-care (01) ==
LOC: SUR 06:20
PROVIDERS: ATTEND Surgery
DX: K40.91 Unilateral inguinal hernia, without obstruction or gangrene, recurrent (principal); I11.0 Hypertensive heart disease with heart failure; I50.9 Heart failure, unspecified; E78.5 Hyperlipidemia, unspecified; E03.9 Hypothyroidism, unspecified; F41.9 Anxiety disorder, unspecified; Z79.899 Other long term (current) drug therapy; I25.2 Old myocardial infarction; I48.91 Unspecified atrial fibrillation; Z98.890 Other specified postprocedural states; Z95.0 Presence of cardiac pacemaker; Z20.822 Contact with and (suspected) exposure to COVID-19
CPT/HCPCS: 36415; 49520; 80053; 81001; 85025; 85610; 85730; 86850; 86900; 86901; C1781; C9089; J0690; J2175; J2250; J3010; J3490; U0003

== ENCOUNTER → 2023-04-14 | Outpatient (CLI) | payer OTHER ==
[~2023-04-14] MED LIST changes: -TAM04C PO; +TAMS-35 PO
[2023-04-14 14:13] LABS: Basophils # (auto) 0 10 ^3/uL (0-0.2); Basophils % (auto) 0.4 % (0.0-2.0); Eosinophils # (auto) 0 10 ^3/uL (0-0.8); Eosinophils % (auto) 0.9 % (0.0-7.0); Hematocrit 48.8 % (41.0-53.0); Hemoglobin 16.4 g/dL (13.5-17.5); Lymphocytes # (auto) 0.8 10 ^3/uL (0.4-5.4); Lymphocytes % (auto) 14.1 % (10.0-50.0); Mean Corpuscular Hemoglobin 32.2 pg (28.0-32.0); Mean Corpuscular Hgb Conc. 33.6 g/dL (32.0-36.0); Mean Corpuscular Volume 95.7 fL (80.0-100.0); Monocytes # (auto) 0.6 10 ^3/uL (0-1.3); Monocytes % (auto) 9.7 % (0.0-12.0); Neutrophils # (auto) 4.3 10 ^3/uL (1.6-8.6); Neutrophils % (auto) 74.9 % (37.0-80.0); Nucleated Red Blood Cells % 0.2 %; Red Blood Cells 5.09 10^6/uL (4.5-5.90); Red Cell Distribution Width 14.7 % (11.8-14.3); White Blood Cell 5.7 10^3/uL (4.4-10.8)
[2023-04-14 14:42] LABS: Albumin 3.6 g/dL (3.4-5.0); Calcium 8.7 mg/dL (8.5-10.1)
[2023-04-14 14:55] LABS: Free T4 (Free Thyroxine) 1.24 ng/dL (0.89-1.76); Prostate Specific Antigen 2.02 ng/mL (0.0-4.0)
[2023-04-14 14:56] LABS: BUN/Creatinine Ratio 7.5 (10.0-20.0); Total Protein 7.2 g/dL (6.4-8.2)
[2023-04-14 15:13] LABS: Potassium 5.6 mmol/L (3.5-5.1)
== END | disposition home or self-care (01) ==
LOC: LAB 13:51
DX: N40.0 Benign prostatic hyperplasia without lower urinary tract symptoms (principal); E34.9 Endocrine disorder, unspecified
CPT/HCPCS: 36415; 80053; 80061; 84153; 84403; 84439; 84443; 85025

== ENCOUNTER → 2023-04-15 | Outpatient (CLI) | payer OTHER ==
[2023-04-15 15:15] LABS: BUN/Creatinine Ratio 7.3 (10.0-20.0); Calcium 8.6 mg/dL (8.5-10.1)
[2023-04-15 15:42] LABS: Potassium 5.8 mmol/L (3.5-5.1)
[2023-04-16 13:37] LABS: BUN/Creatinine Ratio 12.8 (10.0-20.0); Calcium 8.3 mg/dL (8.5-10.1); Potassium 4.5 mmol/L (3.5-5.1)
== END | disposition home or self-care (01) ==
LOC: LAB 13:23
DX: E87.5 Hyperkalemia (principal)
CPT/HCPCS: 36415; 80048

== ENCOUNTER → 2023-10-06 | Outpatient (CLI) | payer OTHER | END | disposition home or self-care (01) | LOC: Rad HDHVI 10:57 | PROVIDERS: ATTEND Internal Medicine Cardiovascular Disease | DX: E78.5 Hyperlipidemia, unspecified (principal); I73.9 Peripheral vascular disease, unspecified | CPT/HCPCS: 93880 ==

== ENCOUNTER → 2023-10-11 | Outpatient (CLI) | payer OTHER | END | disposition home or self-care (01) | LOC: Rad HDHVI 13:58 | PROVIDERS: ATTEND Internal Medicine Cardiovascular Disease | DX: I08.3 Combined rheumatic disorders of mitral, aortic and tricuspid valves (principal); I11.9 Hypertensive heart disease without heart failure | CPT/HCPCS: 93306 ==

== ENCOUNTER → 2024-04-04 | Outpatient (CLI) | payer OTHER ==
[~2024-04-04] MED LIST changes: +POTA-36 PO; -POTA10TA51 PO; +SILD100T PO; -SILD100T57 PO
[2024-04-04 13:50] LABS: Basophils # (auto) 0 10 ^3/uL (0-0.2); Basophils % (auto) 0.3 % (0.0-2.0); Eosinophils # (auto) 0.1 10 ^3/uL (0-0.8); Hematocrit 47.8 % (41.0-53.0); Hemoglobin 15.9 g/dL (13.5-17.5); Lymphocytes % (auto) 17.3 % (10.0-50.0); Mean Corpuscular Hgb Conc. 33.4 g/dL (32.0-36.0); Monocytes # (auto) 0.5 10 ^3/uL (0-1.3); Monocytes % (auto) 8.1 % (0.0-12.0); Neutrophils # (auto) 4.3 10 ^3/uL (1.6-8.6); Neutrophils % (auto) 73.3 % (37.0-80.0); Nucleated Red Blood Cells % 0.1 %; Red Blood Cells 5.31 10^6/uL (4.5-5.90); Red Cell Distribution Width 15.9 % (11.8-14.3); White Blood Cell 5.9 10^3/uL (4.4-10.8)
[2024-04-04 14:17] LABS: Prostate Specific Antigen 1.83 ng/mL (0.0-4.0)
[2024-04-04 14:18] LABS: Alanine Aminotransferase 19 U/L (7-40); Albumin 3.8 g/dL (3.2-4.8); Alkaline Phosphatase 90 U/L (46-116); Anion Gap 0 (5-15); Aspartate Aminotransferase 20 U/L (13-40); BUN/Creatinine Ratio 9.6 (10.0-20.0); Bilirubin, Total 0.9 mg/dL (0.2-1.0); Blood Urea Nitrogen 12 mg/dL (9-23); Calcium 9.1 mg/dL (8.5-10.1); Carbon Dioxide 33 mmol/L (20-30); Chloride 101 mmol/L (98-107); Cholesterol 84 mg/dL (< 200); Glucose 98 mg/dL (74-106); HDL Cholesterol 29 mg/dL (40-59); LDL Cholesterol 46 mg/dL (< 100); Potassium 4.2 mmol/L (3.5-5.1); Sodium 134 mmol/L (136-145); Total Protein 6.7 g/dL (5.7-8.2); Triglycerides 58 mg/dL (< 150)
[2024-04-04 14:20] LABS: Free T4 (Free Thyroxine) 1.19 ng/dL (0.89-1.76)
== END | disposition home or self-care (01) ==
LOC: LAB 13:34
DX: N40.1 Benign prostatic hyperplasia with lower urinary tract symptoms (principal); I10 Essential (primary) hypertension; R73.03 Prediabetes; E34.9 Endocrine disorder, unspecified; N52.9 Male erectile dysfunction, unspecified
CPT/HCPCS: 36415; 80053; 80061; 82043; 83036; 84153; 84403; 84439; 84443; 85025

== ENCOUNTER → 2024-04-25 | Outpatient (CLI) | payer OTHER | END | disposition home or self-care (01) | LOC: LAB 14:02 | PROVIDERS: ATTEND Nurse Practitioner Family | DX: E34.9 Endocrine disorder, unspecified (principal) | CPT/HCPCS: 36415; 84403 ==

== ENCOUNTER → 2024-08-15 | Outpatient (CLI) | payer OTHER ==
[~2024-08-15] VITALS: Ht 177.8 cm; Wt 73.9 kg
[~2024-08-15] MED LIST changes: +ADENOSINE 62 MG in GIVE UN-DILUTED 0 ML IV ONE; +ADENOSINE 90 MG/30 ML INJ IV ONE
== END | disposition home or self-care (01) ==
LOC: Rad HDHVI 14:19
PROVIDERS: ATTEND Internal Medicine Cardiovascular Disease
DX: I13.0 Hypertensive heart and chronic kidney disease with heart failure and stage 1 through stage 4 chronic kidney disease, or unspecified chronic kidney disease (principal); N18.30 Chronic kidney disease, stage 3 unspecified; I50.23 Acute on chronic systolic (congestive) heart failure; I73.9 Peripheral vascular disease, unspecified; I25.2 Old myocardial infarction; J43.9 Emphysema, unspecified; E78.5 Hyperlipidemia, unspecified; I77.810 Thoracic aortic ectasia; I48.20 Chronic atrial fibrillation, unspecified; Z95.0 Presence of cardiac pacemaker; Z82.49 Family history of ischemic heart disease and other diseases of the circulatory system
CPT/HCPCS: 78452; 93005; 96374; 96375; A9500; J0153

== ENCOUNTER → 2024-08-21 | Outpatient (CLI) | payer OTHER ==
[~2024-08-21] MED LIST changes: -ADENOSINE 62 MG in GIVE UN-DILUTED 0 ML IV ONE; -ADENOSINE 90 MG/30 ML INJ IV ONE
== END | disposition home or self-care (01) ==
LOC: Rad HDHVI 12:59
PROVIDERS: ATTEND Internal Medicine Cardiovascular Disease
DX: R06.02 Shortness of breath (principal); I50.23 Acute on chronic systolic (congestive) heart failure
CPT/HCPCS: 93306

== ENCOUNTER → 2024-09-19 | Outpatient (CLI) | payer OTHER ==
[2024-09-19 10:02] VITALS: BP 102/75; PULSE 69; RESP 18; O2SAT 99
[2024-09-19 10:12] VITALS: BP 111/79; PULSE 69; RESP 18; O2SAT 99
--- NOTE | 2024-09-19 12:53 | DVH ---
EXAM: XY CHEST TWO VIEWS ROUTINE CLINICAL HISTORY: Pain COMPARISON: CHEST TWO VIEWS ROUTINE on DOS: 03/10/21 TECHNIQUE: Frontal and lateral view of the chest was obtained FINDINGS: Lines and Tubes: Cardiac pacemaker projects over left chest wall. Lungs: No focal consolidation. Pleura: No effusion. No pneumothorax. Cardiomediastinal contours: Cardiomegaly. Atherosclerotic vascular calcifications of the thoracic aor ta are noted. Bones: No acute osseous abnormality. IMPRESSION: No acute cardiopulmonary disease. Cardiomegaly. Hyperinflation of the lungs suggestive of chronic obs tructive pulmonary disease.
== END | disposition home or self-care (01) ==
LOC: Rad HDHVI 09:55
PROVIDERS: ATTEND Internal Medicine Cardiovascular Disease
DX: Z01.818 Encounter for other preprocedural examination (principal); I51.7 Cardiomegaly; I70.0 Atherosclerosis of aorta
CPT/HCPCS: 71046; 93005; G0463

== ENCOUNTER 2024-09-21 07:59 | Day surgery (SDC) | payer OTHER ==
[2024-09-19 13:16] LABS: Basophils # (auto) 0 10 ^3/uL (0-0.2); Basophils % (auto) 0.3 % (0.0-2.0); Eosinophils # (auto) 0.1 10 ^3/uL (0-0.8); Eosinophils % (auto) 0.8 % (0.0-7.0); Hemoglobin 15.8 g/dL (13.5-17.5); Lymphocytes # (auto) 1.1 10 ^3/uL (0.4-5.4); Lymphocytes % (auto) 14.8 % (10.0-50.0); Mean Corpuscular Hemoglobin 31.1 pg (28.0-32.0); Mean Corpuscular Hgb Conc. 33.5 g/dL (32.0-36.0); Mean Corpuscular Volume 92.7 fL (80.0-100.0); Monocytes # (auto) 0.6 10 ^3/uL (0-1.3); Monocytes % (auto) 8.1 % (0.0-12.0); Neutrophils # (auto) 5.8 10 ^3/uL (1.6-8.6); Nucleated Red Blood Cells % 0.1 %; Platelet Count (auto) 182 10^3/uL (140-450); Red Blood Cells 5.08 10^6/uL (4.5-5.90); Red Cell Distribution Width 15.1 % (11.8-14.3); White Blood Cell 7.6 10^3/uL (4.4-10.8)
[2024-09-19 13:28] LABS: INR 1.28 (0.9-1.15); Partial Thromboplastin Time 32.5 SEC (24.5-34.5); Prothrombin Time 13.3 sec (9.3-11.8)
[2024-09-19 13:48] LABS: Chloride 98 mmol/L (98-107); Potassium 4.4 mmol/L (3.5-5.1); Sodium 133 mmol/L (136-145)
[2024-09-19 13:49] LABS: Anion Gap 3 (5-15); Calcium 9.6 mg/dL (8.7-10.4); Carbon Dioxide 32 mmol/L (20-31)
[2024-09-19 13:54] LABS: BUN/Creatinine Ratio 5.6 (10.0-20.0); Blood Urea Nitrogen 6 mg/dL (9-23); Glucose 102 mg/dL (74-106)
[~2024-09-21] VITALS: Ht 177.8 cm; Wt 71.7 kg
[2024-09-21] VITALS (8 sets, daily range): BP systolic 129–141; BP diastolic 82–91; PULSE 63–76; RESP 13–23; O2SAT 95–100
[~2024-09-21 07:59] MED LIST changes: -POTA-36 PO; -SACU1TAB PO
[2024-09-21] MEDS ORDERED: MIDAZOLAM HCL 2MG/2ML 2ml VIAL (1mg/ml) ONE (12:55)
[2024-09-21] MEDS ORDERED: ANGIOMAX 250 MG VIAL IV ONE (12:55)
[2024-09-21] MEDS ORDERED: SODIUM CHL 0.9% 0 ML ONE (12:55)
[2024-09-21] MEDS ORDERED: fentaNYL CITRATE 100 MCG/2 ML VL ONE (12:55)
[2024-09-21] MEDS ORDERED: IOHEXOL 350 MG/ML 100ML IJ ONE ×2 (12:56→13:18)
[2024-09-21] MEDS ORDERED: LIDOCAINE 2%HCL (LOCAL ANESTH.) INJ 20ML MDV ONE (12:56)
--- NOTE | 2024-09-21 14:41 | DVHOP ---
DATE OF SURGERY: 09/21/2024 PROCEDURE PERFORMED: * Selective left and right coronary angiography. * Ventriculogram. * Right iliac angiography. * Conscious sedation. INDICATIONS: The patient with dilated cardiomyopathy, now with progression of the left ventricular dysfunction and the patient also has segmental wall motion abnormality. The patient is now to undergo the above-mentioned procedure. DESCRIPTION OF PROCEDURE: The patient was prepped and draped in a sterile condition. 1% Xylocaine used to anesthetize the right groin. Using Cook needle, right femoral artery was engaged, with Seldinger technique, a 6-Cymraes sheath into the right femoral artery. Using 6-Cymraes JL4 catheter and 6-Cymraes JR4 catheter, selective left and right coronary angiography was performed. Using 6-Cymraes pigtail catheter, ventriculogram was performed. Similarly, a 12-Cymraes sheath was introduced in the right femoral vein for right pressure monitoring. There were no complications. The patient tolerated the procedure well. RESULTS: * Left main normal. * Left anterior descending artery was normal. * Circumflex was normal. * Right coronary artery was normal. Flow was sluggish because of low cardiac output state. Left ventricular ejection fraction was less than 20% with an LVEDP of 8 mmHg with no gradient across the aortic valve. * Right heart pressure, however, was PA pressure of 10. CONCLUSION: Thus, the patient with dilated cardiomyopathy with depressed left ventricular ejection fraction. At this time, no catheter-based or surgical intervention is warranted. Aggressive risk modification. Overall, prognosis is poor. The patient is status post Bi-V AICD implantation. Jordon Pope MD SA/DELROY TID: [id number] RECEIPT: [id number]
--- NOTE | 2024-09-21 16:33 | DVHDS ---
DATE OF DISCHARGE: 09/21/2024 DISCHARGE DIAGNOSES: The patient with dilated cardiomyopathy, normal coronary anatomy. At this time, medical management is the only option he has. Because of patient's age, he is not a transplant candidate. HOSPITAL COURSE: The patient is [place] [facility] Classification 3 well compensated. Continue all current medications, no changes are required. Follow up with me in 1 week. Stable at the time of discharge. DISPOSITION: Home. ACTIVITY: As instructed. DIET: Will be 2 gram sodium diet. Jordon Pope MD SA/PADMINI TID: [id number] RECEIPT: [id number]
--- NOTE | 2024-09-24 17:35 | DVHHP ---
ADMIT DATE: 09/21/2024 HISTORY OF PRESENT ILLNESS: The patient has a history of congestive heart failure, dilated cardiomyopathy, status post Bi-V AICD implantation, history of osteoarthritis, history of systolic heart failure, chronic at this time. Now, the patient has been having diminishing LV function, echocardiography as well as stress test and also small inferior wall segmental wall motion abnormality and perfusion abnormality as well. Because of the above changes, the patient is now to undergo left heart catheterization. He has a [employer] Bi-V AICD implanted some number of years ago. Denies any fever or chills, melena, hematochezia, hematemesis, hemoptysis or hematuria. Denies any history of seizure disorder. No history of any CVA at this present time. No irritable bowel syndrome. No inflammatory bowel disease. No liver disease. No kidney disease. No history of any tobacco, alcohol or substance abuse at this present time. PHYSICAL EXAMINATION: VITAL SIGNS: Blood pressure is 140/80, pulse of 60 and regular, O2 saturation 94% on room air. HEENT: Pupils are reactive. Funduscopic exam is benign. Sclerae anicteric. Extraocular muscles are intact. NECK: No JVD appreciated. Carotid pulses are 2+, symmetrical. PULMONARY: Clear to auscultation. CARDIOVASCULAR: Regular rate. PMI is diffuse, laterally and inferiorly . There is a 3/6 holosystolic murmur along the left sternal border consistent with mitral regurgitation. ABDOMEN: Soft, nontender, normal bowel sounds, mild tenderness in the groin area and may have an iliac aneurysm evaluated. NEUROLOGIC: The patient is intact. LABORATORY DATA: Creatinine of 1.08. ASSESSMENT AND PLAN: Thus, the patient with dilated cardiomyopathy, now with worsening LV function and with marginal blood pressure, I need to evaluate his coronary anatomy to see whether there is coronary artery disease versus acute decompensation of his LV dysfunction. We will continue to follow the patient. Jordon Pope MD SA/ALIS/JAH/ARMANDO TID: [id number] RECEIPT: [id number]
== END 2024-09-21 16:20 | disposition home or self-care (01) ==
LOC: CATH 07:59
PROVIDERS: ATTEND Internal Medicine Cardiovascular Disease
DX: I42.0 Dilated cardiomyopathy (principal); I11.0 Hypertensive heart disease with heart failure; I50.22 Chronic systolic (congestive) heart failure; F41.8 Other specified anxiety disorders; Z82.49 Family history of ischemic heart disease and other diseases of the circulatory system; Z95.810 Presence of automatic (implantable) cardiac defibrillator
CPT/HCPCS: 36415; 80048; 85025; 85610; 85730; 93458; C1760; C1894; J1644; J2250; J3010; J7040; Q9967; 99152

== ENCOUNTER → 2025-03-09 | Outpatient (CLI) | payer OTHER ==
[2025-03-09 12:05] LABS: Urine Bacteria None Seen /hpf (None Seen)
[2025-03-09 12:25] LABS: Basophils # (auto) 0 10 ^3/uL (0-0.2); Basophils % (auto) 0.7 % (0.0-2.0); Eosinophils # (auto) 0.1 10 ^3/uL (0-0.8); Eosinophils % (auto) 1.5 % (0.0-7.0); Hemoglobin 16.6 g/dL (13.5-17.5); Lymphocytes # (auto) 1.2 10 ^3/uL (0.4-5.4); Lymphocytes % (auto) 23.3 % (10.0-50.0); Mean Corpuscular Hgb Conc. 32.6 g/dL (32.0-36.0); Mean Corpuscular Volume 85.9 fL (80.0-100.0); Monocytes # (auto) 0.7 10 ^3/uL (0-1.3); Monocytes % (auto) 13.4 % (0.0-12.0); Neutrophils # (auto) 3.2 10 ^3/uL (1.6-8.6); Neutrophils % (auto) 61.1 % (37.0-80.0); Nucleated Red Blood Cells % 0.1 %; Platelet Count (auto) 181 10^3/uL (140-450); Red Blood Cells 5.93 10^6/uL (4.5-5.90); Red Cell Distribution Width 16.3 % (11.8-14.3); White Blood Cell 5.3 10^3/uL (4.4-10.8)
[2025-03-09 12:37] LABS: Urine Blood Negative /uL (Negative); Urine Clarity Clear (Clear); Urine Color Light-Yellow (Yellow); Urine Protein, UAD Negative (Negative); Urine Specific Gravity 1.005 (1.001-1.035); Urine Squamous Epithelial Cell None Seen /hpf (<5); Urine Urobilinogen Normal (Negative); Urine WBC 1 /HPF (0-3)
[2025-03-09 12:43] LABS: Alanine Aminotransferase 34 U/L (7-40); Albumin 4.3 g/dL (3.2-4.8); Alkaline Phosphatase 69 U/L (46-116); Anion Gap 7 (5-15); Aspartate Aminotransferase 29 U/L (13-40); BUN/Creatinine Ratio 11.4 (10.0-20.0); Blood Urea Nitrogen 17 mg/dL (9-23); Calcium 9.7 mg/dL (8.7-10.4); Carbon Dioxide 30 mmol/L (20-31); Chloride 100 mmol/L (98-107); Cholesterol 115 mg/dL (< 200); Glucose 92 mg/dL (74-106); LDL Cholesterol 70 mg/dL (< 100); Potassium 4.4 mmol/L (3.5-5.1); Sodium 137 mmol/L (136-145); Total Protein 7.4 g/dL (5.7-8.2); Triglycerides 104 mg/dL (< 150)
[2025-03-09 12:55] LABS: Bilirubin, Direct 0.5 mg/dL (<0.3); Bilirubin, Total 1.5 mg/dL (0.2-1.0); HDL Cholesterol 34 mg/dL (40-59)
== END | disposition home or self-care (01) ==
LOC: LAB 11:46
PROVIDERS: ATTEND Nurse Practitioner Family
DX: C61 Malignant neoplasm of prostate (principal); I13.0 Hypertensive heart and chronic kidney disease with heart failure and stage 1 through stage 4 chronic kidney disease, or unspecified chronic kidney disease; I50.9 Heart failure, unspecified; E11.22 Type 2 diabetes mellitus with diabetic chronic kidney disease; N18.30 Chronic kidney disease, stage 3 unspecified; E29.1 Testicular hypofunction; E55.9 Vitamin D deficiency, unspecified; D51.3 Other dietary vitamin B12 deficiency anemia; R00.2 Palpitations; E34.9 Endocrine disorder, unspecified; D63.1 Anemia in chronic kidney disease; Z00.01 Encounter for general adult medical examination with abnormal findings
CPT/HCPCS: 36415; 80053; 80061; 80076; 81001; 83036; 84153; 84403; 84443; 85025

== ENCOUNTER → 2025-03-13 | Outpatient (CLI) | payer OTHER | END | disposition home or self-care (01) | LOC: LAB 12:45 | PROVIDERS: ATTEND Nurse Practitioner Family | DX: Z12.11 Encounter for screening for malignant neoplasm of colon (principal); I13.0 Hypertensive heart and chronic kidney disease with heart failure and stage 1 through stage 4 chronic kidney disease, or unspecified chronic kidney disease; N18.30 Chronic kidney disease, stage 3 unspecified; I50.9 Heart failure, unspecified; E34.9 Endocrine disorder, unspecified | CPT/HCPCS: 82270 ==

== ENCOUNTER 2025-07-31 12:27 | Outpatient (CLI) | payer OTHER | END 2025-07-31 17:00 | disposition home or self-care (01) | LOC: Rad HDHVI 12:27 | PROVIDERS: ATTEND Internal Medicine Cardiovascular Disease | DX: I34.0 Nonrheumatic mitral (valve) insufficiency (principal); Z95.0 Presence of cardiac pacemaker | CPT/HCPCS: 93306 ==

== ENCOUNTER 2025-08-15 12:39 | Outpatient (CLI) | payer OTHER ==
[~2025-08-15] VITALS: Ht 180.3 cm; Wt 95.3 kg
[2025-08-15] MEDS ORDERED: ADENOSINE 90 MG/30 ML INJ IV ONE (13:25)
[2025-08-15] MEDS ORDERED: ADENOSINE 80 MG in GIVE UN-DILUTED 0 ML IV ONE (13:30)
== END 2025-08-16 17:00 | disposition home or self-care (01) ==
LOC: Rad HDHVI 12:39
PROVIDERS: ATTEND Internal Medicine Cardiovascular Disease
DX: I13.0 Hypertensive heart and chronic kidney disease with heart failure and stage 1 through stage 4 chronic kidney disease, or unspecified chronic kidney disease (principal); I50.42 Chronic combined systolic (congestive) and diastolic (congestive) heart failure; N18.30 Chronic kidney disease, stage 3 unspecified; I25.10 Atherosclerotic heart disease of native coronary artery without angina pectoris; I73.9 Peripheral vascular disease, unspecified; I25.2 Old myocardial infarction; I48.20 Chronic atrial fibrillation, unspecified; I42.0 Dilated cardiomyopathy; R07.89 Other chest pain; J44.9 Chronic obstructive pulmonary disease, unspecified; E78.00 Pure hypercholesterolemia, unspecified; Z95.0 Presence of cardiac pacemaker; Z82.49 Family history of ischemic heart disease and other diseases of the circulatory system
CPT/HCPCS: 78452; 93017; A9500; J0153